=== PATIENT | female | born 1955 | race Caucasian/White ===

== ENCOUNTER 2018-09-12 12:36 | Inpatient (IN) ==
[2018-09-12] MEDS ORDERED: SODIUM CHLORIDE 0.9% 1,000 ML IV STA (13:20)
[2018-09-12 14:05] LABS: Basophils % 0.2 % (0.0-0.8); Eosinophils % 0.3 % (0.00-10.9); Hematocrit 46.5 VOL% (35.7-47.0); Immature Granulocytes % 0.2 %; Immature Granulocytes Absolute 0.02 #; Lymphocytes # 2.1 10*3/uL (1.4-4.0); Lymphocytes % 20.4 % (21.3-54.2); Mean Corpuscular HGB Conc 32.3 GM/DL (32-36); Mean Corpuscular Hemoglobin 32 PG (27-34); Mean Corpuscular Volume 98.5 FL (87-102); Mean Platelet Volume 14.1 FL (9.6-12.0); Monocytes # 0.7 10*3/uL (0.11-0.8); Monocytes % 7.4 % (1.7-12.7); Neutrophils # 7.2 10*3/uL (1.4-7.4); Neutrophils % 71.5 % (38.7-73.9); Platelet Count 105 T/CUMM (130-400); Red Blood Count 4.72 MC/CUMM (3.8-5.5); Red Cell Distribution Width 12.5 % (9.3-17.3); White Blood Count 10.1 T/CUMM (4-12)
[2018-09-12 14:09] LABS: Apearance,Urine CLOUDY (Clear); Bacteria,Urine Few /HPF (Few); Bilirubin,Urine Negative (Negative); Blood, Urine Small mg/dL (Negative); Glucose,Urine (UA) Negative (Negative); Ketones,Urine 80 mg/dL (Negative); Mucus,Urine Occasional /LPF (Occasional); Nitrite,Urine Negative (Negative); Protein,Urine 100 MG/DL; Squamous Epithelial Cell,Urine Few /HPF (0-10); Urine Color Amber (Yellow); Urine Specific Gravity 1.029 (1.001-1.035); WBC,Urine 3 /HPF (0-6)
[2018-09-12 14:15] LABS: Albumin 3.7 G/DL (3.4-5.0); Bilirubin,Total 0.5 MG/DL (0.2-1.0); Calcium 8.4 MG/DL (8.5-10.1); Osmolality,Calculated 319.9 MOS/KG (273-304); Potassium 3.4 MMOL/L (3.5-5.1); Total Protein 6.7 G/DL (6.4-8.3)
[2018-09-12] MEDS ORDERED: ACETAMINOPHEN 325 MG TABLET PO PRN (14:56)
[2018-09-12] MEDS ORDERED: ONDANSETRON 4 MG/2 ML VIAL IV PRN (14:56)
[2018-09-12] MEDS: SODIUM CHLORIDE 0.9% 1,000 ML IV SCH (16:38)
[2018-09-12] MEDS ORDERED: POTASSIUM CHLORIDE RIDER 10 MEQ in PREMIX 1 EACH IV PRN (17:32)
[2018-09-12] MEDS ORDERED: FLUCONAZOLE INJ 200 MG in PREMIX 1 EACH IV ONE (17:34)
[2018-09-12] MEDS ORDERED: MAGNESIUM HYDROXIDE SUSP 30 ML UDCUP PO PRN (18:24)
[2018-09-12] MEDS: methylPREDNISolone SOD SUC 40 MG/1 ML VIAL IV SCH (18:42)
[2018-09-12] MEDS: KETOROLAC 15 MG/1 ML VIAL IV SCH (18:42)
[2018-09-12] MEDS: NYSTATIN 500,000 UNIT/5 ML UDCUP SWISH/SWAL SCH (20:59)
[2018-09-12] MEDS: POLYVINYL ALCOHOL 1.4% OPH SOLN 15 ML BOTTLE BOTH EYES SCH (20:59)
[2018-09-12] MEDS: traZODone 50 MG TABLET PO SCH (21:00)
[2018-09-12] MEDS: DOCUSATE SODIUM 100 MG CAPSULE PO SCH (21:00)
[2018-09-12] MEDS: PREGABALIN 75 MG CAPSULE PO SCH (21:01)
[2018-09-12] MEDS: BACLOFEN 10 MG TABLET PO SCH (21:01)
[2018-09-12] MEDS: FAMOTIDINE 20 MG TABLET PO SCH (21:02)
[2018-09-12] MEDS: cefTRIAXone 500 MG in SYRINGE 1 EACH IV SCH (21:06)
[2018-09-12] MEDS ORDERED: KETOROLAC 15 MG/1 ML VIAL IV SCH (22:00)
[2018-09-13] MEDS ORDERED: MAGNESIUM HYDROXIDE SUSP 30 ML UDCUP PO SCH
[2018-09-13] MEDS: SODIUM CHLORIDE 0.9% 1,000 ML IV SCH ×2 (02:31→09:42)
[2018-09-13] MEDS: KETOROLAC 15 MG/1 ML VIAL IV SCH ×3 (02:31→17:33)
[2018-09-13] MEDS: methylPREDNISolone SOD SUC 40 MG/1 ML VIAL IV SCH ×3 (02:33→17:32)
[2018-09-13 07:00] LABS: Calcium 7.9 MG/DL (8.5-10.1); Potassium 3.1 MMOL/L (3.5-5.1)
[2018-09-13] MEDS: DICYCLOMINE 20 MG TABLET PO SCH ×2 (07:45→16:05)
[2018-09-13] MEDS: BACLOFEN 10 MG TABLET PO SCH ×3 (08:20→21:42)
[2018-09-13] MEDS: OXYBUTYNIN XL 10 MG TABLET PO SCH (08:20)
[2018-09-13] MEDS: NYSTATIN 500,000 UNIT/5 ML UDCUP SWISH/SWAL SCH ×4 (08:20→21:42)
[2018-09-13] MEDS: DOCUSATE SODIUM 100 MG CAPSULE PO SCH ×2 (08:20→21:41)
[2018-09-13] MEDS: PREGABALIN 75 MG CAPSULE PO SCH ×2 (08:20→21:42)
[2018-09-13] MEDS: amLODIPine 5 MG TABLET PO SCH (08:21)
[2018-09-13] MEDS: FAMOTIDINE 20 MG TABLET PO SCH ×2 (08:21→21:42)
[2018-09-13] MEDS: PANTOPRAZOLE 40 MG TABLET PO SCH (08:21)
[2018-09-13] MEDS: carBAMazepine 200 MG TABLET PO SCH (08:21)
[2018-09-13] MEDS: LISINOPRIL 10 MG TABLET PO SCH (08:21)
[2018-09-13] MEDS: FLUCONAZOLE INJ 100 MG in IV BAG 1 EACH IV SCH (09:41)
[2018-09-13] MEDS: POLYVINYL ALCOHOL 1.4% OPH SOLN 15 ML BOTTLE BOTH EYES SCH ×2 (09:41→21:41)
[2018-09-13] MEDS ORDERED: POTASSIUM CHLORIDE 20 MEQ TABLET PO ONE (11:19)
[2018-09-13] MEDS ORDERED: POTASSIUM CHLORIDE RIDER 10 MEQ in PREMIX 1 EACH IV PRN (14:18)
[2018-09-13] MEDS: DEXTROSE 5% 1,000 ML IV SCH (15:49)
[2018-09-13] MEDS: FAT EMULSION 20% 250 ML IV SCH (16:05)
[2018-09-13] MEDS ORDERED: TRACE ELEMENTS (5) 1 ML, MULTIVITAMIN INJ 10 ML in AMINO ACIDS/DEXT/LYTES 5-15% 2,000 ML IV SCH (17:00)
[2018-09-13] MEDS: INSULIN REGULAR 100 UNIT/ML SUBCUT SCH (17:36)
[2018-09-13] MEDS: HYDROmorphone 2 MG/1 ML VIAL IV PRN (21:35)
[2018-09-13] MEDS: traZODone 50 MG TABLET PO SCH (21:41)
[2018-09-13] MEDS: POTASSIUM CHLORIDE 20 MEQ TABLET PO SCH (21:42)
[2018-09-13] MEDS: cefTRIAXone 500 MG in SYRINGE 1 EACH IV SCH (22:28)
[2018-09-14] MEDS: INSULIN REGULAR 100 UNIT/ML SUBCUT SCH ×4 (01:15→18:37)
[2018-09-14] MEDS: KETOROLAC 15 MG/1 ML VIAL IV SCH ×3 (01:36→17:49)
[2018-09-14] MEDS: methylPREDNISolone SOD SUC 40 MG/1 ML VIAL IV SCH ×3 (02:07→17:46)
[2018-09-14] MEDS: DEXTROSE 5% 1,000 ML IV SCH ×2 (02:07→14:05)
[2018-09-14] MEDS: HYDROmorphone 2 MG/1 ML VIAL IV PRN ×4 (02:17→23:57)
[2018-09-14 05:35] LABS: Basophils % 0.1 % (0.0-0.8); Hematocrit 41.7 VOL% (35.7-47.0); Hemoglobin 13.8 GM/DL (12.0-16.0); Immature Granulocytes % 0.8 %; Immature Granulocytes Absolute 0.11 #; Lymphocytes % 7.4 % (21.3-54.2); Mean Corpuscular HGB Conc 33.1 GM/DL (32-36); Mean Corpuscular Hemoglobin 32 PG (27-34); Mean Corpuscular Volume 96.3 FL (87-102); Mean Platelet Volume 13.6 FL (9.6-12.0); Monocytes # 0.8 10*3/uL (0.11-0.8); Monocytes % 5.6 % (1.7-12.7); Neutrophils # 11.9 10*3/uL (1.4-7.4); Neutrophils % 86.1 % (38.7-73.9); Platelet Count 85 T/CUMM (130-400); Red Blood Count 4.33 MC/CUMM (3.8-5.5); Red Cell Distribution Width 11.9 % (9.3-17.3); White Blood Count 13.9 T/CUMM (4-12)
[2018-09-14 05:50] LABS: Calcium 7.9 MG/DL (8.5-10.1); Osmolality,Calculated 296.7 MOS/KG (273-304); Prealbumin 24.5 MG/DL (20-40)
[2018-09-14] MEDS: POTASSIUM CHLORIDE RIDER 20 MEQ in PREMIX 1 EACH IV PRN ×3 (06:38→17:47)
[2018-09-14 06:40] LABS: Anisocytosis 1+; Microcytosis Slight
[2018-09-14 06:41] LABS: Platelet Estimate Decreased
[2018-09-14] MEDS: DICYCLOMINE 20 MG TABLET PO SCH ×2 (09:33→17:19)
[2018-09-14] MEDS: OXYBUTYNIN XL 10 MG TABLET PO SCH (09:33)
[2018-09-14] MEDS: DOCUSATE SODIUM 100 MG CAPSULE PO SCH ×2 (09:33→21:32)
[2018-09-14] MEDS: FAMOTIDINE 20 MG TABLET PO SCH ×2 (09:34→21:33)
[2018-09-14] MEDS: amLODIPine 5 MG TABLET PO SCH (09:34)
[2018-09-14] MEDS: carBAMazepine 200 MG TABLET PO SCH (09:34)
[2018-09-14] MEDS: BACLOFEN 10 MG TABLET PO SCH ×3 (09:34→21:32)
[2018-09-14] MEDS: POTASSIUM CHLORIDE 20 MEQ TABLET PO SCH ×2 (09:34→21:32)
[2018-09-14] MEDS: PREGABALIN 75 MG CAPSULE PO SCH ×2 (09:34→21:32)
[2018-09-14] MEDS: LISINOPRIL 10 MG TABLET PO SCH (09:34)
[2018-09-14] MEDS: PANTOPRAZOLE 40 MG TABLET PO SCH (09:34)
[2018-09-14] MEDS: NYSTATIN 500,000 UNIT/5 ML UDCUP SWISH/SWAL SCH ×5 (09:49→21:32)
[2018-09-14] MEDS: FLUCONAZOLE INJ 100 MG in IV BAG 1 EACH IV SCH (09:49)
[2018-09-14] MEDS: SODIUM CHLORIDE 0.45% 1,000 ML IV SCH ×2 (09:51→21:29)
[2018-09-14] MEDS ORDERED: POTASSIUM PHOSPHATE 15 MMOL in SODIUM CHLORIDE 0.9% 100 ML IV ONE (10:00)
[2018-09-14] MEDS: POLYVINYL ALCOHOL 1.4% OPH SOLN 15 ML BOTTLE BOTH EYES SCH ×2 (10:07→21:32)
[2018-09-14] MEDS: FAT EMULSION 20% 250 ML IV SCH (16:30)
[2018-09-14] MEDS: TRACE ELEMENTS (5) 1 ML, MULTIVITAMIN INJ 10 ML in AMINO ACIDS/DEXT/LYTES 5-15% 2,000 ML IV SCH (16:31)
[2018-09-14] MEDS: cefTRIAXone 500 MG in SYRINGE 1 EACH IV SCH (21:18)
[2018-09-14] MEDS: traZODone 50 MG TABLET PO SCH (21:32)
[2018-09-15] MEDS: INSULIN REGULAR 100 UNIT/ML SUBCUT SCH ×4 (01:34→17:59)
[2018-09-15] MEDS: KETOROLAC 15 MG/1 ML VIAL IV SCH ×3 (01:34→17:58)
[2018-09-15] MEDS: methylPREDNISolone SOD SUC 40 MG/1 ML VIAL IV SCH ×3 (01:48→17:59)
[2018-09-15] MEDS: SODIUM CHLORIDE 0.45% 1,000 ML IV SCH ×2 (07:29→16:40)
[2018-09-15] MEDS: DICYCLOMINE 20 MG TABLET PO SCH ×2 (07:45→16:59)
[2018-09-15] MEDS: FLUCONAZOLE INJ 100 MG in IV BAG 1 EACH IV SCH (09:23)
[2018-09-15] MEDS: PREGABALIN 75 MG CAPSULE PO SCH ×2 (09:24→22:46)
[2018-09-15] MEDS: amLODIPine 5 MG TABLET PO SCH (09:24)
[2018-09-15] MEDS: BACLOFEN 10 MG TABLET PO SCH ×3 (09:24→22:46)
[2018-09-15] MEDS: FAMOTIDINE 20 MG TABLET PO SCH ×2 (09:24→22:47)
[2018-09-15] MEDS: POTASSIUM CHLORIDE 20 MEQ TABLET PO SCH ×2 (09:24→22:46)
[2018-09-15] MEDS: OXYBUTYNIN XL 10 MG TABLET PO SCH (09:24)
[2018-09-15] MEDS: LISINOPRIL 10 MG TABLET PO SCH (09:24)
[2018-09-15] MEDS: DOCUSATE SODIUM 100 MG CAPSULE PO SCH ×2 (09:24→22:45)
[2018-09-15] MEDS: PANTOPRAZOLE 40 MG TABLET PO SCH (09:25)
[2018-09-15] MEDS: carBAMazepine 200 MG TABLET PO SCH (09:25)
[2018-09-15] MEDS: POLYVINYL ALCOHOL 1.4% OPH SOLN 15 ML BOTTLE BOTH EYES SCH ×2 (09:28→22:45)
[2018-09-15] MEDS: NYSTATIN 500,000 UNIT/5 ML UDCUP SWISH/SWAL SCH ×5 (09:29→22:46)
[2018-09-15] MEDS ORDERED: ALBUTEROL/IPRATROPIUM 3 ML NEB RESP TX ONE (11:32)
[2018-09-15] MEDS ORDERED: FUROSEMIDE 20 MG/2 ML VIAL IV ONE (11:32)
[2018-09-15] MEDS: HYDROmorphone 2 MG/1 ML VIAL IV PRN ×2 (12:54→21:36)
[2018-09-15] MEDS ORDERED: ALBUTEROL/IPRATROPIUM 3 ML NEB RESP TX SCH (13:00)
[2018-09-15] MEDS: TRACE ELEMENTS (5) 1 ML, MULTIVITAMIN INJ 10 ML in AMINO ACIDS/DEXT/LYTES 5-15% 2,000 ML IV SCH (16:57)
[2018-09-15] MEDS: FAT EMULSION 20% 250 ML IV SCH (16:58)
[2018-09-15] MEDS: ALBUTEROL/IPRATROPIUM 3 ML NEB RESP TX SCH (19:36)
[2018-09-15] MEDS: cefTRIAXone 500 MG in SYRINGE 1 EACH IV SCH (21:36)
[2018-09-15] MEDS: traZODone 50 MG TABLET PO SCH (22:46)
[2018-09-16] MEDS: ALBUTEROL/IPRATROPIUM 3 ML NEB RESP TX SCH ×4 (01:12→19:10)
[2018-09-16] MEDS: INSULIN REGULAR 100 UNIT/ML SUBCUT SCH ×4 (02:17→20:00)
[2018-09-16] MEDS: methylPREDNISolone SOD SUC 40 MG/1 ML VIAL IV SCH ×3 (02:18→18:41)
[2018-09-16] MEDS: KETOROLAC 15 MG/1 ML VIAL IV SCH ×3 (02:20→18:41)
[2018-09-16 05:28] LABS: Basophils % 0.1 % (0.0-0.8); Hematocrit 37.9 VOL% (35.7-47.0); Hemoglobin 13.1 GM/DL (12.0-16.0); Immature Granulocytes % 0.5 %; Immature Granulocytes Absolute 0.06 #; Lymphocytes # 0.7 10*3/uL (1.4-4.0); Lymphocytes % 5.8 % (21.3-54.2); Mean Corpuscular HGB Conc 34.6 GM/DL (32-36); Mean Corpuscular Hemoglobin 33 PG (27-34); Monocytes # 0.6 10*3/uL (0.11-0.8); Monocytes % 5.2 % (1.7-12.7); Neutrophils # 10.3 10*3/uL (1.4-7.4); Neutrophils % 88.4 % (38.7-73.9); Platelet Count 51 T/CUMM (130-400); Red Blood Count 4.03 MC/CUMM (3.8-5.5); Red Cell Distribution Width 11.7 % (9.3-17.3); White Blood Count 11.6 T/CUMM (4-12)
[2018-09-16 05:51] LABS: Lymphocytes 7 % (20-55); Segmented Neutrophils 86 % (50-85); Total Cells Counted 100
[2018-09-16 05:52] LABS: Platelet Estimate Decreased
[2018-09-16 06:05] LABS: Calcium 8.1 MG/DL (8.5-10.1); Osmolality,Calculated 283.5 MOS/KG (273-304); Potassium 3.4 MMOL/L (3.5-5.1)
[2018-09-16 06:06] LABS: Calcium 8.2 MG/DL (8.5-10.1); Osmolality,Calculated 286.4 MOS/KG (273-304); Potassium 3.4 MMOL/L (3.5-5.1)
[2018-09-16] MEDS: POLYVINYL ALCOHOL 1.4% OPH SOLN 15 ML BOTTLE BOTH EYES SCH ×2 (10:17→23:58)
[2018-09-16] MEDS: NYSTATIN 500,000 UNIT/5 ML UDCUP SWISH/SWAL SCH ×3 (10:18→23:58)
[2018-09-16] MEDS: DICYCLOMINE 20 MG TABLET PO SCH ×2 (12:07→17:08)
[2018-09-16] MEDS: POTASSIUM CHLORIDE 20 MEQ TABLET PO SCH ×2 (12:07→23:58)
[2018-09-16] MEDS: OXYBUTYNIN XL 10 MG TABLET PO SCH (12:07)
[2018-09-16] MEDS: DOCUSATE SODIUM 100 MG CAPSULE PO SCH ×2 (12:07→23:58)
[2018-09-16] MEDS: PREGABALIN 75 MG CAPSULE PO SCH ×2 (12:08→23:58)
[2018-09-16] MEDS: amLODIPine 5 MG TABLET PO SCH (12:08)
[2018-09-16] MEDS: BACLOFEN 10 MG TABLET PO SCH ×3 (12:08→23:58)
[2018-09-16] MEDS: FAMOTIDINE 20 MG TABLET PO SCH ×2 (12:09→23:59)
[2018-09-16] MEDS: carBAMazepine 200 MG TABLET PO SCH (12:09)
[2018-09-16] MEDS: PANTOPRAZOLE 40 MG TABLET PO SCH (12:09)
[2018-09-16] MEDS: LISINOPRIL 10 MG TABLET PO SCH (12:09)
[2018-09-16] MEDS: FLUCONAZOLE INJ 100 MG in IV BAG 1 EACH IV SCH (12:38)
[2018-09-16] MEDS: SODIUM CHLORIDE 0.45% 1,000 ML IV SCH ×2 (12:39→17:07)
[2018-09-16] MEDS: FAT EMULSION 20% 250 ML IV SCH (17:07)
[2018-09-16] MEDS: TRACE ELEMENTS (5) 1 ML, MULTIVITAMIN INJ 10 ML in AMINO ACIDS/DEXT/LYTES 5-15% 2,000 ML IV SCH (17:08)
[2018-09-16] MEDS: cefTRIAXone 500 MG in SYRINGE 1 EACH IV SCH (21:34)
[2018-09-16] MEDS: POTASSIUM CHLORIDE RIDER 20 MEQ in PREMIX 1 EACH IV PRN (21:36)
[2018-09-16] MEDS ORDERED: ALPRAZolam 0.25 MG TABLET PO ONE (23:09)
[2018-09-16] MEDS: traZODone 50 MG TABLET PO SCH (23:58)
[2018-09-17] MEDS: ALBUTEROL/IPRATROPIUM 3 ML NEB RESP TX SCH ×4 (00:07→19:13)
[2018-09-17] MEDS: INSULIN REGULAR 100 UNIT/ML SUBCUT SCH ×4 (00:18→19:02)
[2018-09-17] MEDS: methylPREDNISolone SOD SUC 40 MG/1 ML VIAL IV SCH ×3 (00:20→22:09)
[2018-09-17] MEDS: KETOROLAC 15 MG/1 ML VIAL IV SCH ×2 (02:06→10:23)
[2018-09-17 04:39] LABS: Basophils % 0.1 % (0.0-0.8); Hematocrit 38.6 VOL% (35.7-47.0); Immature Granulocytes % 0.9 %; Lymphocytes # 0.6 10*3/uL (1.4-4.0); Lymphocytes % 5.2 % (21.3-54.2); Mean Corpuscular HGB Conc 33.7 GM/DL (32-36); Mean Corpuscular Hemoglobin 32 PG (27-34); Mean Corpuscular Volume 93.7 FL (87-102); Mean Platelet Volume 14.4 FL (9.6-12.0); Monocytes # 0.6 10*3/uL (0.11-0.8); Monocytes % 5.7 % (1.7-12.7); Neutrophils # 9.8 10*3/uL (1.4-7.4); Neutrophils % 88.1 % (38.7-73.9); Platelet Count 41 T/CUMM (130-400); Red Blood Count 4.12 MC/CUMM (3.8-5.5); Red Cell Distribution Width 11.5 % (9.3-17.3); White Blood Count 11.1 T/CUMM (4-12)
[2018-09-17 05:05] LABS: Anisocytosis Slight
[2018-09-17 05:06] LABS: Microcytosis Slight
[2018-09-17 05:19] LABS: Platelet Estimate Decreased
[2018-09-17] MEDS: POLYVINYL ALCOHOL 1.4% OPH SOLN 15 ML BOTTLE BOTH EYES SCH ×2 (08:47→20:21)
[2018-09-17] MEDS: DICYCLOMINE 20 MG TABLET PO SCH ×2 (11:43→18:14)
[2018-09-17] MEDS: LISINOPRIL 20 MG TABLET PO SCH (11:45)
[2018-09-17] MEDS: carBAMazepine 200 MG TABLET PO SCH (11:45)
[2018-09-17] MEDS: FAMOTIDINE 20 MG TABLET PO SCH ×2 (11:45→20:30)
[2018-09-17] MEDS: ALPRAZolam 0.25 MG TABLET PO SCH ×3 (11:45→20:30)
[2018-09-17] MEDS: PANTOPRAZOLE 40 MG TABLET PO SCH (11:45)
[2018-09-17] MEDS: NYSTATIN 500,000 UNIT/5 ML UDCUP SWISH/SWAL SCH ×4 (11:46→20:30)
[2018-09-17] MEDS: BACLOFEN 10 MG TABLET PO SCH ×3 (11:46→20:30)
[2018-09-17] MEDS: amLODIPine 10 MG TABLET PO SCH (11:46)
[2018-09-17] MEDS: PREGABALIN 75 MG CAPSULE PO SCH ×2 (11:46→20:30)
[2018-09-17] MEDS: DOCUSATE SODIUM 100 MG CAPSULE PO SCH ×2 (11:47→20:29)
[2018-09-17] MEDS: OXYBUTYNIN XL 10 MG TABLET PO SCH (11:47)
[2018-09-17] MEDS: POTASSIUM CHLORIDE 20 MEQ TABLET PO SCH ×2 (11:47→20:30)
[2018-09-17] MEDS: FAT EMULSION 20% 250 ML IV SCH (18:11)
[2018-09-17] MEDS: SODIUM CHLORIDE 0.45% 1,000 ML IV SCH (18:13)
[2018-09-17] MEDS: TRACE ELEMENTS (5) 1 ML, MULTIVITAMIN INJ 10 ML in AMINO ACIDS/DEXT/LYTES 5-15% 2,000 ML IV SCH (18:14)
[2018-09-17] MEDS: cefTRIAXone 500 MG in SYRINGE 1 EACH IV SCH (20:21)
[2018-09-17] MEDS: traZODone 50 MG TABLET PO SCH (20:29)
[2018-09-18] MEDS: INSULIN REGULAR 100 UNIT/ML SUBCUT SCH ×4 (00:09→18:15)
[2018-09-18] MEDS: ALBUTEROL/IPRATROPIUM 3 ML NEB RESP TX SCH ×4 (00:30→19:36)
[2018-09-18 04:59] LABS: Basophils % 0.2 % (0.0-0.8); Eosinophils % 0.2 % (0.00-10.9); Hematocrit 38.1 VOL% (35.7-47.0); Hemoglobin 12.9 GM/DL (12.0-16.0); Immature Granulocytes % 1.2 %; Immature Granulocytes Absolute 0.15 #; Lymphocytes # 1.1 10*3/uL (1.4-4.0); Lymphocytes % 8.5 % (21.3-54.2); Mean Corpuscular HGB Conc 33.9 GM/DL (32-36); Mean Corpuscular Hemoglobin 32 PG (27-34); Mean Corpuscular Volume 93.8 FL (87-102); Mean Platelet Volume 14.4 FL (9.6-12.0); Monocytes # 1.1 10*3/uL (0.11-0.8); Monocytes % 9.1 % (1.7-12.7); Neutrophils # 10.2 10*3/uL (1.4-7.4); Neutrophils % 80.8 % (38.7-73.9); Platelet Count 67 T/CUMM (130-400); Red Blood Count 4.06 MC/CUMM (3.8-5.5); Red Cell Distribution Width 11.5 % (9.3-17.3); White Blood Count 12.6 T/CUMM (4-12)
[2018-09-18 05:25] LABS: Hypochromasia 1+; Platelet Estimate Decreased
[2018-09-18 05:26] LABS: Microcytosis Slight
[2018-09-18] MEDS: NYSTATIN 500,000 UNIT/5 ML UDCUP SWISH/SWAL SCH ×4 (09:22→21:12)
[2018-09-18] MEDS: DICYCLOMINE 20 MG TABLET PO SCH ×2 (09:24→16:05)
[2018-09-18] MEDS: POLYVINYL ALCOHOL 1.4% OPH SOLN 15 ML BOTTLE BOTH EYES SCH ×2 (09:24→21:11)
[2018-09-18] MEDS: OXYBUTYNIN XL 10 MG TABLET PO SCH (09:24)
[2018-09-18] MEDS: BACLOFEN 10 MG TABLET PO SCH ×3 (09:24→21:10)
[2018-09-18] MEDS: DOCUSATE SODIUM 100 MG CAPSULE PO SCH ×2 (09:24→23:01)
[2018-09-18] MEDS: POTASSIUM CHLORIDE 20 MEQ TABLET PO SCH ×2 (09:24→21:10)
[2018-09-18] MEDS: PREGABALIN 75 MG CAPSULE PO SCH ×2 (09:25→21:11)
[2018-09-18] MEDS: amLODIPine 10 MG TABLET PO SCH (09:29)
[2018-09-18] MEDS: FAMOTIDINE 20 MG TABLET PO SCH ×2 (09:29→21:10)
[2018-09-18] MEDS: carBAMazepine 200 MG TABLET PO SCH (09:32)
[2018-09-18] MEDS: PANTOPRAZOLE 40 MG TABLET PO SCH (09:32)
[2018-09-18] MEDS: ALPRAZolam 0.25 MG TABLET PO SCH ×3 (09:32→21:11)
[2018-09-18] MEDS: LISINOPRIL 20 MG TABLET PO SCH (09:32)
[2018-09-18] MEDS: methylPREDNISolone SOD SUC 40 MG/1 ML VIAL IV SCH ×2 (11:22→22:58)
[2018-09-18] MEDS: FAT EMULSION 20% 250 ML IV SCH (16:05)
[2018-09-18] MEDS: TRACE ELEMENTS (5) 1 ML, MULTIVITAMIN INJ 10 ML in AMINO ACIDS/DEXT/LYTES 5-15% 2,000 ML IV SCH (16:06)
[2018-09-18] MEDS: traZODone 50 MG TABLET PO SCH (21:10)
[2018-09-19] MEDS: ALBUTEROL/IPRATROPIUM 3 ML NEB RESP TX SCH ×4 (00:08→19:40)
[2018-09-19] MEDS: INSULIN REGULAR 100 UNIT/ML SUBCUT SCH ×4 (02:02→18:29)
[2018-09-19 05:05] LABS: Basophils % 0.1 % (0.0-0.8); Eosinophils % 0.1 % (0.00-10.9); Hematocrit 37.7 VOL% (35.7-47.0); Hemoglobin 12.6 GM/DL (12.0-16.0); Immature Granulocytes % 1.7 %; Immature Granulocytes Absolute 0.23 #; Lymphocytes # 0.7 10*3/uL (1.4-4.0); Lymphocytes % 5.2 % (21.3-54.2); Mean Corpuscular HGB Conc 33.4 GM/DL (32-36); Mean Corpuscular Hemoglobin 32 PG (27-34); Mean Corpuscular Volume 94.5 FL (87-102); Mean Platelet Volume 14.7 FL (9.6-12.0); Monocytes % 7.5 % (1.7-12.7); Neutrophils # 11.6 10*3/uL (1.4-7.4); Neutrophils % 85.4 % (38.7-73.9); Platelet Count 73 T/CUMM (130-400); Red Blood Count 3.99 MC/CUMM (3.8-5.5); Red Cell Distribution Width 11.8 % (9.3-17.3); White Blood Count 13.6 T/CUMM (4-12)
[2018-09-19 05:24] LABS: Calcium 8.1 MG/DL (8.5-10.1); Osmolality,Calculated 285.7 MOS/KG (273-304); Potassium 4.9 MMOL/L (3.5-5.1)
[2018-09-19 05:42] LABS: Alanine Aminotransferase 186 U/L (13-56); Albumin 2.9 G/DL (3.4-5.0); Alkaline Phosphatase 75 U/L (45-117); Aspartate Amino Transferase 38 U/L (0-37); Bilirubin,Indirect 0.3 MG/DL (0.0-1.0); Bilirubin,Total < 0.39 MG/DL (0.2-1.0); Total Protein 5.8 G/DL (6.4-8.3)
[2018-09-19 05:50] LABS: Lymphocytes 11 % (20-55); Segmented Neutrophils 84 % (50-85); Total Cells Counted 100
[2018-09-19 05:51] LABS: Anisocytosis Slight; Microcytosis Slight; Platelet Estimate Decreased
[2018-09-19] MEDS: amLODIPine 10 MG TABLET PO SCH (09:07)
[2018-09-19] MEDS: OXYBUTYNIN XL 10 MG TABLET PO SCH (09:07)
[2018-09-19] MEDS: carBAMazepine 200 MG TABLET PO SCH (09:07)
[2018-09-19] MEDS: POTASSIUM CHLORIDE 20 MEQ TABLET PO SCH ×2 (09:07→20:58)
[2018-09-19] MEDS: ALPRAZolam 0.25 MG TABLET PO SCH ×3 (09:07→20:58)
[2018-09-19] MEDS: LISINOPRIL 20 MG TABLET PO SCH (09:07)
[2018-09-19] MEDS: NYSTATIN 500,000 UNIT/5 ML UDCUP SWISH/SWAL SCH ×4 (09:07→21:00)
[2018-09-19] MEDS: BACLOFEN 10 MG TABLET PO SCH ×3 (09:08→20:58)
[2018-09-19] MEDS: FAMOTIDINE 20 MG TABLET PO SCH ×2 (09:08→20:58)
[2018-09-19] MEDS: DICYCLOMINE 20 MG TABLET PO SCH ×2 (09:08→16:53)
[2018-09-19] MEDS: PREGABALIN 75 MG CAPSULE PO SCH ×2 (09:08→20:58)
[2018-09-19] MEDS: POLYVINYL ALCOHOL 1.4% OPH SOLN 15 ML BOTTLE BOTH EYES SCH ×2 (09:08→21:04)
[2018-09-19] MEDS: DOCUSATE SODIUM 100 MG CAPSULE PO SCH ×2 (09:09→20:57)
[2018-09-19] MEDS: PANTOPRAZOLE 40 MG TABLET PO SCH (09:14)
[2018-09-19] MEDS: methylPREDNISolone SOD SUC 40 MG/1 ML VIAL IV SCH ×2 (12:41→22:35)
[2018-09-19] MEDS: TRACE ELEMENTS (5) 1 ML, MULTIVITAMIN INJ 10 ML in AMINO ACIDS/DEXT/LYTES 5-15% 2,000 ML IV SCH (16:53)
[2018-09-19] MEDS: FAT EMULSION 20% 250 ML IV SCH (16:53)
[2018-09-19] MEDS: SODIUM CHLORIDE 0.45% 1,000 ML IV SCH (17:24)
[2018-09-19] MEDS: traZODone 50 MG TABLET PO SCH (21:00)
[2018-09-20] MEDS: ALBUTEROL/IPRATROPIUM 3 ML NEB RESP TX SCH ×4 (00:28→19:25)
[2018-09-20] MEDS: INSULIN REGULAR 100 UNIT/ML SUBCUT SCH ×4 (00:55→18:06)
[2018-09-20] MEDS: SODIUM CHLORIDE 0.45% 1,000 ML IV SCH (01:48)
[2018-09-20] MEDS: carBAMazepine 200 MG TABLET PO SCH (08:36)
[2018-09-20] MEDS: DICYCLOMINE 20 MG TABLET PO SCH ×2 (08:36→17:41)
[2018-09-20] MEDS: OXYBUTYNIN XL 10 MG TABLET PO SCH (08:36)
[2018-09-20] MEDS: LISINOPRIL 20 MG TABLET PO SCH (08:36)
[2018-09-20] MEDS: POTASSIUM CHLORIDE 20 MEQ TABLET PO SCH (08:36)
[2018-09-20] MEDS: ALPRAZolam 0.25 MG TABLET PO SCH ×3 (08:37→20:50)
[2018-09-20] MEDS: FAMOTIDINE 20 MG TABLET PO SCH ×2 (08:37→20:51)
[2018-09-20] MEDS: amLODIPine 10 MG TABLET PO SCH (08:37)
[2018-09-20] MEDS: PREGABALIN 75 MG CAPSULE PO SCH ×2 (08:38→20:51)
[2018-09-20] MEDS: PANTOPRAZOLE 40 MG TABLET PO SCH (08:38)
[2018-09-20] MEDS: POLYVINYL ALCOHOL 1.4% OPH SOLN 15 ML BOTTLE BOTH EYES SCH ×2 (08:39→20:51)
[2018-09-20] MEDS: BACLOFEN 10 MG TABLET PO SCH ×3 (08:39→20:51)
[2018-09-20] MEDS: NYSTATIN 500,000 UNIT/5 ML UDCUP SWISH/SWAL SCH ×4 (08:39→20:51)
[2018-09-20] MEDS: DOCUSATE SODIUM 100 MG CAPSULE PO SCH ×2 (08:39→20:50)
[2018-09-20] MEDS: methylPREDNISolone SOD SUC 40 MG/1 ML VIAL IV SCH ×2 (12:38→18:06)
[2018-09-20] MEDS ORDERED: SODIUM PHOSPHATE ENEMA 133 ML BOTTLE RECTAL ONE (15:24)
[2018-09-20] MEDS ORDERED: SODIUM PHOSPHATE ENEMA 133 ML BOTTLE RECTAL PRN (15:24)
[2018-09-20] MEDS ORDERED: OXYBUTYNIN XL 10 MG TABLET PO SCH (15:31)
[2018-09-20 15:44] LABS: Basophils # 0.1 10*3/uL (0.0-0.2); Basophils % 0.4 % (0.0-0.8); Eosinophils % 0.2 % (0.00-10.9); Hematocrit 39.6 VOL% (35.7-47.0); Hemoglobin 12.9 GM/DL (12.0-16.0); Immature Granulocytes % 5.2 %; Immature Granulocytes Absolute 0.92 #; Lymphocytes # 1.2 10*3/uL (1.4-4.0); Lymphocytes % 6.9 % (21.3-54.2); Mean Corpuscular HGB Conc 32.6 GM/DL (32-36); Mean Corpuscular Hemoglobin 32 PG (27-34); Mean Corpuscular Volume 96.6 FL (87-102); Mean Platelet Volume 13.9 FL (9.6-12.0); Monocytes # 1.7 10*3/uL (0.11-0.8); Monocytes % 9.8 % (1.7-12.7); Neutrophils # 13.8 10*3/uL (1.4-7.4); Neutrophils % 77.5 % (38.7-73.9); Platelet Count 106 T/CUMM (130-400); Red Cell Distribution Width 11.9 % (9.3-17.3); White Blood Count 17.7 T/CUMM (4-12)
[2018-09-20 16:08] LABS: Hypochromasia Slight; Lymphocytes 7 % (20-55); Microcytosis Slight; Segmented Neutrophils 84 % (50-85)
[2018-09-20 16:09] LABS: Platelet Estimate Decreased; Total Cells Counted 100
[2018-09-20 16:20] LABS: Calcium 8.6 MG/DL (8.5-10.1)
[2018-09-20] MEDS: TRACE ELEMENTS (5) 1 ML, MULTIVITAMIN INJ 10 ML in AMINO ACIDS/DEXT/LYTES 5-15% 2,000 ML IV SCH (18:08)
[2018-09-20] MEDS: FAT EMULSION 20% 250 ML IV SCH (18:08)
[2018-09-20] MEDS: traZODone 50 MG TABLET PO SCH (20:50)
[2018-09-20] MEDS ORDERED: MINERAL OIL ENEMA 133 ML BOTTLE RECTAL ONE (22:21)
[2018-09-21] MEDS: INSULIN REGULAR 100 UNIT/ML SUBCUT SCH ×3 (00:30→14:18)
[2018-09-21] MEDS: ALBUTEROL/IPRATROPIUM 3 ML NEB RESP TX SCH ×3 (00:32→13:34)
[2018-09-21] MEDS: methylPREDNISolone SOD SUC 40 MG/1 ML VIAL IV SCH (03:34)
[2018-09-21] MEDS: carBAMazepine 200 MG TABLET PO SCH (08:57)
[2018-09-21] MEDS: PANTOPRAZOLE 40 MG TABLET PO SCH (08:58)
[2018-09-21] MEDS: ALPRAZolam 0.25 MG TABLET PO SCH (08:58)
[2018-09-21] MEDS: FAMOTIDINE 20 MG TABLET PO SCH (08:59)
[2018-09-21] MEDS: NYSTATIN 500,000 UNIT/5 ML UDCUP SWISH/SWAL SCH ×2 (08:59→14:42)
[2018-09-21] MEDS: BACLOFEN 10 MG TABLET PO SCH (08:59)
[2018-09-21] MEDS: LISINOPRIL 20 MG TABLET PO SCH (08:59)
[2018-09-21] MEDS: amLODIPine 10 MG TABLET PO SCH (08:59)
[2018-09-21] MEDS: POLYVINYL ALCOHOL 1.4% OPH SOLN 15 ML BOTTLE BOTH EYES SCH (09:00)
[2018-09-21] MEDS: DOCUSATE SODIUM 100 MG CAPSULE PO SCH (09:00)
[2018-09-21] MEDS ORDERED: POTASSIUM CHLORIDE 20 MEQ TABLET PO SCH (09:00)
[2018-09-21] MEDS: DICYCLOMINE 20 MG TABLET PO SCH (09:00)
[2018-09-21] MEDS: PREGABALIN 75 MG CAPSULE PO SCH (09:01)
[2018-09-21 12:20] VITALS: BP 118/68
== END 2018-09-21 14:43 | DRG 115 ==
LOC: EDUNIT# → EDBD → N.ED 12:36 → N.EDINP 14:58 → N.4E 15:35
PROVIDERS: ADMIT Internal Medicine; ATTEND Internal Medicine

== ENCOUNTER 2021-03-23 17:59 | Inpatient (IN) ==
[2021-03-23] MEDS ORDERED: SODIUM CHLORIDE 0.9% 1,000 ML IV STA ×2 (18:21→20:00)
[2021-03-23] MEDS ORDERED: VANCOMYCIN INJ 1,500 MG in SODIUM CHLORIDE 0.9% 500 ML IV STA (18:22)
[2021-03-23] MEDS ORDERED: CEFEPIME 2,000 MG in SODIUM CHLORIDE 0.9% 100 ML IV STA (18:22)
[2021-03-23] MEDS ORDERED: VANCOMYCIN INJ 1,000 MG in SODIUM CHLORIDE 0.9% 250 ML IV STA (18:33)
[2021-03-23 19:55] LABS: Basophils % 0.2 % (0.0-0.8); Eosinophils # 0.1 10*3/uL (0.0-0.87); Eosinophils % 0.4 % (0.00-10.9); Hematocrit 48.3 VOL% (35.7-47.0); Hemoglobin 15.5 GM/DL (12.0-16.0); Immature Granulocytes % 0.8 %; Immature Granulocytes Absolute 0.12 #; Lymphocytes # 2.3 10*3/uL (1.4-4.0); Lymphocytes % 14.5 % (21.3-54.2); Mean Corpuscular HGB Conc 32.1 GM/DL (32-36); Mean Corpuscular Volume 105.7 FL (87-102); Mean Platelet Volume 12.9 FL (9.6-12.0); Monocytes % 10.6 % (1.7-12.7); Neutrophils % 73.5 % (38.7-73.9); Platelet Count 107 T/CUMM (130-400); Red Blood Count 4.57 MC/CUMM (3.8-5.5); Red Cell Distribution Width 12.4 % (9.3-17.3); White Blood Count 15.6 T/CUMM (4-12)
[2021-03-23 20:14] LABS: Alanine Aminotransferase 31 U/L (13-56); Albumin 2.9 G/DL (3.4-5.0); Alkaline Phosphatase 50 U/L (45-117); Aspartate Amino Transferase 15 U/L (0-37); Bilirubin,Direct < 0.100 MG/DL (0.0-0.20); Bilirubin,Indirect 0.3 MG/DL (0.0-1.0); Blood Urea Nitrogen 75 MG/DL (7-18); Calcium 8.2 MG/DL (8.5-10.1); Carbon Dioxide 18 MMOL/L (21-32); Estimated Glom Filtration Rate 21 ML/MIN; Glucose 179 MG/DL (74-106); Osmolality,Calculated 339.7 MOS/KG (273-304); Potassium 3.2 MMOL/L (3.5-5.1); Sodium 159 MMOL/L (136-145); Total Protein 5.4 G/DL (6.4-8.2)
[2021-03-23] MEDS ORDERED: ACETAMINOPHEN 325 MG TABLET PO PRN (20:42)
[2021-03-23] MEDS ORDERED: ONDANSETRON 4 MG/2 ML VIAL IV PRN (20:42)
[2021-03-23 20:52] LABS: Bacteria,Urine Many /HPF (Few); Bilirubin,Urine Negative (Negative); Blood, Urine Small mg/dL (Negative); Glucose,Urine (UA) Negative (Negative); Hyaline Casts,Urine 12 /LPF (0-3); Ketones,Urine Negative (Negative); Mucus,Urine Few /LPF (Occasional); Nitrite,Urine Negative (Negative); Protein,Urine 100 MG/DL; RBC,Urine 2 /HPF (0-4); Squamous Epithelial Cell,Urine Occasional /HPF (0-10); Urine Appearance Slightly Hazy (Clear); Urine Color Amber (Yellow); Urine Specific Gravity 1.023 (1.001-1.035)
[2021-03-23] MEDS: SODIUM CHLORIDE 0.9% 1,000 ML IV SCH (21:36)
[2021-03-24] MEDS: DOCUSATE SODIUM 100 MG CAPSULE PO SCH ×2 (04:35→09:26)
[2021-03-24] MEDS: SODIUM CHLORIDE 0.9% 1,000 ML IV SCH (04:39)
[2021-03-24 05:32] LABS: Basophils % 0.2 % (0.0-0.8); Eosinophils # 0.3 10*3/uL (0.0-0.87); Eosinophils % 1.8 % (0.00-10.9); Hematocrit 47.1 VOL% (35.7-47.0); Immature Granulocytes % 0.6 %; Immature Granulocytes Absolute 0.09 #; Lymphocytes % 21.3 % (21.3-54.2); Mean Corpuscular HGB Conc 31.8 GM/DL (32-36); Mean Platelet Volume 12.9 FL (9.6-12.0); Monocytes % 6.6 % (1.7-12.7); Neutrophils % 69.5 % (38.7-73.9); Red Cell Distribution Width 12.4 % (9.3-17.3); White Blood Count 14.2 T/CUMM (4-12)
[2021-03-24 05:38] LABS: Platelet Count 98 T/CUMM (130-400)
[2021-03-24 05:42] LABS: Albumin 2.9 G/DL (3.4-5.0); Bilirubin,Total 0.6 MG/DL (0.20-1.00); Calcium 8.5 MG/DL (8.5-10.1); Osmolality,Calculated 335.6 MOS/KG (273-304); Potassium 4.9 MMOL/L (3.5-5.1); Total Protein 5.4 G/DL (6.4-8.2)
[2021-03-24 05:52] LABS: Platelet Estimate Decreased
[2021-03-24] MEDS: PANTOPRAZOLE 40 MG TABLET PO SCH (09:26)
[2021-03-24] MEDS ORDERED: MAGNESIUM HYDROXIDE SUSP 30 ML UDCUP PO PRN (13:07)
[2021-03-24] MEDS: KETOROLAC 15 MG/1 ML VIAL IV SCH ×2 (13:24→22:41)
[2021-03-24] MEDS: SKIN HEALING OINT (AQUAPHOR) 50 GM TUBE TOP SCH (13:25)
[2021-03-24] MEDS: DEXTROSE 5% 1,000 ML IV SCH ×2 (13:25→22:40)
[2021-03-24] MEDS: methylPREDNISolone SOD SUC 40 MG/1 ML VIAL IV SCH ×2 (13:25→22:41)
[2021-03-25] MEDS: DOCUSATE SODIUM 100 MG CAPSULE PO SCH ×4 (06:16→20:35)
[2021-03-25] MEDS: KETOROLAC 15 MG/1 ML VIAL IV SCH ×3 (07:06→20:22)
[2021-03-25] MEDS: methylPREDNISolone SOD SUC 40 MG/1 ML VIAL IV SCH ×3 (07:06→20:25)
[2021-03-25 07:48] LABS: Basophils % 0.1 % (0.0-0.8); Eosinophils % 0.1 % (0.00-10.9); Hematocrit 39.2 VOL% (35.7-47.0); Hemoglobin 13.1 GM/DL (12.0-16.0); Immature Granulocytes % 0.6 %; Immature Granulocytes Absolute 0.06 #; Lymphocytes # 1.2 10*3/uL (1.4-4.0); Mean Corpuscular HGB Conc 33.4 GM/DL (32-36); Mean Corpuscular Volume 101.6 FL (87-102); Mean Platelet Volume 12.5 FL (9.6-12.0); Monocytes % 3.4 % (1.7-12.7); Neutrophils % 83.8 % (38.7-73.9); Platelet Count 71 T/CUMM (130-400); Red Blood Count 3.86 MC/CUMM (3.8-5.5); Red Cell Distribution Width 11.9 % (9.3-17.3); White Blood Count 10.2 T/CUMM (4-12)
[2021-03-25 08:07] LABS: Albumin 2.7 G/DL (3.4-5.0); Bilirubin,Total 0.6 MG/DL (0.20-1.00); Calcium 8.6 MG/DL (8.5-10.1); Osmolality,Calculated 314.7 MOS/KG (273-304); Potassium 3.8 MMOL/L (3.5-5.1); Total Protein 5.2 G/DL (6.4-8.2)
[2021-03-25 08:09] LABS: Platelet Estimate Decreased
[2021-03-25] MEDS: PANTOPRAZOLE 40 MG TABLET PO SCH ×2 (08:40→08:51)
[2021-03-25] MEDS: SKIN HEALING OINT (AQUAPHOR) 50 GM TUBE TOP SCH (08:51)
[2021-03-25] MEDS: DEXTROSE 5% 1,000 ML IV SCH ×2 (08:52→20:26)
[2021-03-25] MEDS: SODIUM CHLORIDE 0.45% 1,000 ML IV SCH (23:23)
[2021-03-26] MEDS: KETOROLAC 15 MG/1 ML VIAL IV SCH ×4 (01:05→20:29)
[2021-03-26] MEDS: methylPREDNISolone SOD SUC 40 MG/1 ML VIAL IV SCH ×3 (04:18→20:29)
[2021-03-26 04:26] LABS: Basophils % 0.1 % (0.0-0.8); Hematocrit 40.1 VOL% (35.7-47.0); Hemoglobin 13.6 GM/DL (12.0-16.0); Immature Granulocytes % 0.9 %; Lymphocytes % 8.3 % (21.3-54.2); Mean Corpuscular HGB Conc 33.9 GM/DL (32-36); Mean Corpuscular Volume 98.8 FL (87-102); Mean Platelet Volume 13.5 FL (9.6-12.0); Monocytes % 3.1 % (1.7-12.7); Neutrophils % 87.6 % (38.7-73.9); Platelet Count 74 T/CUMM (130-400); Red Blood Count 4.06 MC/CUMM (3.8-5.5); Red Cell Distribution Width 11.2 % (9.3-17.3); White Blood Count 11.6 T/CUMM (4-12)
[2021-03-26 04:42] LABS: Calcium 8.9 MG/DL (8.5-10.1); Osmolality,Calculated 291.1 MOS/KG (273-304); Potassium 3.4 MMOL/L (3.5-5.1)
[2021-03-26] MEDS: POLYVINYL ALCOHOL 1.4% OPH SOLN 15 ML BOTTLE BOTH EYES SCH ×2 (09:54→20:29)
[2021-03-26] MEDS: FLUTICASONE 50 MCG NASAL SPRAY 16 GM BOTTLE BOTH NARES SCH (09:54)
[2021-03-26] MEDS: MOISTURIZING CREAM (EUCERIN) 106 GM JAR TOP SCH (09:54)
[2021-03-26] MEDS: POTASSIUM CHLORIDE RIDER 10 MEQ/100 ML PREMIX IV SCH ×2 (09:55→13:06)
[2021-03-26] MEDS: FAMOTIDINE 20 MG TABLET PO SCH (09:55)
[2021-03-26] MEDS: SKIN HEALING OINT (AQUAPHOR) 50 GM TUBE TOP SCH (09:55)
[2021-03-26] MEDS: PREGABALIN 25 MG CAPSULE PO SCH ×2 (09:55→20:26)
[2021-03-26] MEDS: BACLOFEN 10 MG TABLET PO SCH ×3 (09:55→18:07)
[2021-03-26] MEDS: DICYCLOMINE 20 MG TABLET PO SCH ×2 (09:55→18:07)
[2021-03-26] MEDS: carBAMazepine 200 MG TABLET PO SCH (09:58)
[2021-03-26] MEDS: buPROPion SR 150 MG TABLET PO SCH (09:58)
[2021-03-26] MEDS: DOCUSATE SODIUM 100 MG CAPSULE PO SCH ×2 (09:58→20:26)
[2021-03-26] MEDS: SODIUM CHLORIDE 0.45% 1,000 ML IV SCH ×2 (11:09→21:11)
[2021-03-26] MEDS: traZODone 50 MG TABLET PO SCH (20:26)
[2021-03-26] MEDS: MEMANTINE 10 MG TABLET PO SCH (20:26)
[2021-03-26] MEDS: CITALOPRAM 40 MG TABLET PO SCH (20:26)
[2021-03-26] MEDS: PIPERACILLIN/TAZOBACTAM 3,375 MG in SODIUM CHLORIDE 0.9% 100 ML IV SCH (20:43)
[2021-03-27] MEDS: KETOROLAC 15 MG/1 ML VIAL IV SCH ×4 (02:34→20:06)
[2021-03-27] MEDS: SODIUM CHLORIDE 0.45% 1,000 ML IV SCH ×2 (05:17→15:33)
[2021-03-27] MEDS: methylPREDNISolone SOD SUC 40 MG/1 ML VIAL IV SCH ×3 (05:18→20:07)
[2021-03-27] MEDS: PIPERACILLIN/TAZOBACTAM 3,375 MG in SODIUM CHLORIDE 0.9% 100 ML IV SCH ×3 (05:18→20:07)
[2021-03-27 06:14] LABS: Calcium 8.7 MG/DL (8.5-10.1); Osmolality,Calculated 284.4 MOS/KG (273-304); Potassium 4.1 MMOL/L (3.5-5.1)
[2021-03-27 06:23] LABS: Basophils % 0.2 % (0.0-0.8); Hematocrit 42.5 VOL% (35.7-47.0); Hemoglobin 14.3 GM/DL (12.0-16.0); Immature Granulocytes % 1.1 %; Immature Granulocytes Absolute 0.11 #; Lymphocytes # 0.8 10*3/uL (1.4-4.0); Lymphocytes % 8.4 % (21.3-54.2); Mean Corpuscular HGB Conc 33.6 GM/DL (32-36); Mean Corpuscular Volume 101.9 FL (87-102); Monocytes % 4.9 % (1.7-12.7); Neutrophils % 85.4 % (38.7-73.9); Platelet Count 52 T/CUMM (130-400); Red Blood Count 4.17 MC/CUMM (3.8-5.5); Red Cell Distribution Width 11.5 % (9.3-17.3); White Blood Count 9.9 T/CUMM (4-12)
[2021-03-27 06:28] LABS: Platelet Estimate Decreased
[2021-03-27] MEDS: PREGABALIN 25 MG CAPSULE PO SCH ×2 (08:56→20:05)
[2021-03-27] MEDS: DOCUSATE SODIUM 100 MG CAPSULE PO SCH ×2 (08:56→20:05)
[2021-03-27] MEDS: carBAMazepine 200 MG TABLET PO SCH (08:56)
[2021-03-27] MEDS: DICYCLOMINE 20 MG TABLET PO SCH ×2 (08:56→17:35)
[2021-03-27] MEDS: BACLOFEN 10 MG TABLET PO SCH ×3 (08:57→17:35)
[2021-03-27] MEDS: FLUTICASONE 50 MCG NASAL SPRAY 16 GM BOTTLE BOTH NARES SCH (08:57)
[2021-03-27] MEDS: buPROPion SR 150 MG TABLET PO SCH (08:57)
[2021-03-27] MEDS: FAMOTIDINE 20 MG TABLET PO SCH (08:57)
[2021-03-27] MEDS: MOISTURIZING CREAM (EUCERIN) 106 GM JAR TOP SCH (08:57)
[2021-03-27] MEDS: SKIN HEALING OINT (AQUAPHOR) 50 GM TUBE TOP SCH (08:58)
[2021-03-27] MEDS: POLYVINYL ALCOHOL 1.4% OPH SOLN 15 ML BOTTLE BOTH EYES SCH ×2 (08:58→20:07)
[2021-03-27] MEDS: traZODone 50 MG TABLET PO SCH (20:06)
[2021-03-27] MEDS: MEMANTINE 10 MG TABLET PO SCH (20:06)
[2021-03-27] MEDS: CITALOPRAM 40 MG TABLET PO SCH (20:06)
[2021-03-28] MEDS: KETOROLAC 15 MG/1 ML VIAL IV SCH ×3 (01:49→14:59)
[2021-03-28] MEDS: SODIUM CHLORIDE 0.45% 1,000 ML IV SCH ×2 (02:15→11:42)
[2021-03-28 05:10] LABS: Basophils % 0.2 % (0.0-0.8); Eosinophils % 0.1 % (0.00-10.9); Hematocrit 36.6 VOL% (35.7-47.0); Hemoglobin 12.2 GM/DL (12.0-16.0); Immature Granulocytes % 1.9 %; Lymphocytes # 1.3 10*3/uL (1.4-4.0); Lymphocytes % 12.1 % (21.3-54.2); Mean Corpuscular HGB Conc 33.3 GM/DL (32-36); Mean Corpuscular Volume 100.5 FL (87-102); Monocytes % 7.2 % (1.7-12.7); Neutrophils % 78.5 % (38.7-73.9); Platelet Count 47 T/CUMM (130-400); Red Blood Count 3.64 MC/CUMM (3.8-5.5); Red Cell Distribution Width 11.3 % (9.3-17.3); White Blood Count 10.7 T/CUMM (4-12)
[2021-03-28 05:30] LABS: Platelet Estimate Decreased
[2021-03-28 05:40] LABS: Calcium 8.6 MG/DL (8.5-10.1); Osmolality,Calculated 285.4 MOS/KG (273-304); Potassium 4.3 MMOL/L (3.5-5.1)
[2021-03-28] MEDS: methylPREDNISolone SOD SUC 40 MG/1 ML VIAL IV SCH ×2 (05:45→14:27)
[2021-03-28] MEDS: PIPERACILLIN/TAZOBACTAM 3,375 MG in SODIUM CHLORIDE 0.9% 100 ML IV SCH ×2 (05:45→14:23)
[2021-03-28] MEDS: SKIN HEALING OINT (AQUAPHOR) 50 GM TUBE TOP SCH (09:27)
[2021-03-28] MEDS: MOISTURIZING CREAM (EUCERIN) 106 GM JAR TOP SCH (09:28)
[2021-03-28] MEDS: POLYVINYL ALCOHOL 1.4% OPH SOLN 15 ML BOTTLE BOTH EYES SCH (09:28)
[2021-03-28] MEDS: carBAMazepine 200 MG TABLET PO SCH (09:28)
[2021-03-28] MEDS: DOCUSATE SODIUM 100 MG CAPSULE PO SCH (09:28)
[2021-03-28] MEDS: buPROPion SR 150 MG TABLET PO SCH (09:28)
[2021-03-28] MEDS: BACLOFEN 10 MG TABLET PO SCH ×3 (09:29→17:18)
[2021-03-28] MEDS: FAMOTIDINE 20 MG TABLET PO SCH (09:29)
[2021-03-28] MEDS: DICYCLOMINE 20 MG TABLET PO SCH ×2 (09:29→17:18)
[2021-03-28] MEDS: PREGABALIN 25 MG CAPSULE PO SCH (09:30)
[2021-03-28] MEDS: FIBER STAT PO SCH (09:32)
[2021-03-28] MEDS: FLUTICASONE 50 MCG NASAL SPRAY 16 GM BOTTLE BOTH NARES SCH (09:33)
[2021-03-28] MEDS ORDERED: ROPIVACAINE 0.5% 30 ML VIAL MISC INJ ONE (11:00)
[2021-03-28] MEDS ORDERED: TRIAMCINOLONE ACETONIDE 40 MG/1 ML VIAL MISC INJ ONE (11:00)
[2021-03-29] MEDS: DOCUSATE SODIUM 100 MG CAPSULE PO SCH ×3 (00:03→22:41)
[2021-03-29] MEDS: MEMANTINE 10 MG TABLET PO SCH ×2 (00:03→22:41)
[2021-03-29] MEDS: PREGABALIN 25 MG CAPSULE PO SCH ×2 (00:03→09:56)
[2021-03-29] MEDS: POLYVINYL ALCOHOL 1.4% OPH SOLN 15 ML BOTTLE BOTH EYES SCH ×3 (00:04→22:42)
[2021-03-29] MEDS: traZODone 50 MG TABLET PO SCH (00:06)
[2021-03-29] MEDS: CITALOPRAM 40 MG TABLET PO SCH (00:06)
[2021-03-29] MEDS: SODIUM CHLORIDE 0.45% 1,000 ML IV SCH ×3 (06:34→16:44)
[2021-03-29] MEDS: methylPREDNISolone SOD SUC 40 MG/1 ML VIAL IV SCH ×3 (06:34→12:43)
[2021-03-29] MEDS: KETOROLAC 15 MG/1 ML VIAL IV SCH ×4 (06:34→22:41)
[2021-03-29] MEDS: PIPERACILLIN/TAZOBACTAM 3,375 MG in SODIUM CHLORIDE 0.9% 100 ML IV SCH ×3 (06:35→22:41)
[2021-03-29] MEDS: carBAMazepine 200 MG TABLET PO SCH (09:56)
[2021-03-29] MEDS: FAMOTIDINE 20 MG TABLET PO SCH (09:56)
[2021-03-29] MEDS: buPROPion SR 150 MG TABLET PO SCH (09:56)
[2021-03-29] MEDS: BACLOFEN 10 MG TABLET PO SCH ×3 (09:57→16:43)
[2021-03-29] MEDS: MOISTURIZING CREAM (EUCERIN) 106 GM JAR TOP SCH (09:57)
[2021-03-29] MEDS: DICYCLOMINE 20 MG TABLET PO SCH ×2 (09:57→16:43)
[2021-03-29] MEDS: SKIN HEALING OINT (AQUAPHOR) 50 GM TUBE TOP SCH (09:58)
[2021-03-29] MEDS: FLUTICASONE 50 MCG NASAL SPRAY 16 GM BOTTLE BOTH NARES SCH (09:58)
[2021-03-29 10:53] LABS: Basophils % 0.2 % (0.0-0.8); Eosinophils # 0.3 10*3/uL (0.0-0.87); Eosinophils % 2.3 % (0.00-10.9); Hemoglobin 12.4 GM/DL (12.0-16.0); Immature Granulocytes % 2.5 %; Immature Granulocytes Absolute 0.31 #; Lymphocytes # 3.3 10*3/uL (1.4-4.0); Lymphocytes % 26.4 % (21.3-54.2); Mean Corpuscular HGB Conc 34.4 GM/DL (32-36); Mean Corpuscular Volume 99.4 FL (87-102); Mean Platelet Volume 14.2 FL (9.6-12.0); Monocytes % 8.2 % (1.7-12.7); Neutrophils % 60.4 % (38.7-73.9); Platelet Count 53 T/CUMM (130-400); Red Blood Count 3.62 MC/CUMM (3.8-5.5); Red Cell Distribution Width 11.5 % (9.3-17.3); White Blood Count 12.6 T/CUMM (4-12)
[2021-03-29 11:18] LABS: Hypochromasia Slight; Microcytosis Slight; Platelet Estimate Decreased
[2021-03-29 11:35] LABS: Bilirubin,Urine Negative (Negative); Blood, Urine Negative (Negative); Glucose,Urine (UA) Negative (Negative); Ketones,Urine 5 mg/dL (Negative); Mucus,Urine Many /LPF (Occasional); Nitrite,Urine Negative (Negative); Protein,Urine 30 MG/DL; RBC,Urine 25 /HPF (0-4); Squamous Epithelial Cell,Urine Occasional /HPF (0-10); Urine Appearance Slightly Hazy (Clear); Urine Color Amber (Yellow); Urine Specific Gravity 1.028 (1.001-1.035)
[2021-03-29] MEDS ORDERED: BACLOFEN 10 MG TABLET PO PRN (17:20)
[2021-03-29] MEDS ORDERED: traZODone 50 MG TABLET PO PRN (17:21)
[2021-03-29] MEDS ORDERED: PREGABALIN 25 MG CAPSULE PO PRN (17:21)
[2021-03-30] MEDS: KETOROLAC 15 MG/1 ML VIAL IV SCH ×2 (01:41→08:40)
[2021-03-30] MEDS: methylPREDNISolone SOD SUC 40 MG/1 ML VIAL IV SCH ×2 (05:31→16:09)
[2021-03-30] MEDS: SODIUM CHLORIDE 0.45% 1,000 ML IV SCH ×2 (05:32→14:13)
[2021-03-30] MEDS: PIPERACILLIN/TAZOBACTAM 3,375 MG in SODIUM CHLORIDE 0.9% 100 ML IV SCH ×2 (05:35→14:13)
[2021-03-30 05:42] LABS: Basophils % 0.2 % (0.0-0.8); Eosinophils # 0.2 10*3/uL (0.0-0.87); Hematocrit 36.6 VOL% (35.7-47.0); Hemoglobin 12.7 GM/DL (12.0-16.0); Immature Granulocytes % 4.1 %; Immature Granulocytes Absolute 0.41 #; Lymphocytes # 2.5 10*3/uL (1.4-4.0); Lymphocytes % 24.7 % (21.3-54.2); Mean Corpuscular HGB Conc 34.7 GM/DL (32-36); Mean Corpuscular Volume 97.1 FL (87-102); Monocytes % 6.9 % (1.7-12.7); Neutrophils % 62.1 % (38.7-73.9); Platelet Count 70 T/CUMM (130-400); Red Blood Count 3.77 MC/CUMM (3.8-5.5); Red Cell Distribution Width 11.4 % (9.3-17.3)
[2021-03-30 05:58] LABS: Calcium 8.5 MG/DL (8.5-10.1); Potassium 4.1 MMOL/L (3.5-5.1)
[2021-03-30 06:02] LABS: Platelet Estimate Decreased
[2021-03-30] MEDS: carBAMazepine 200 MG TABLET PO SCH (08:39)
[2021-03-30] MEDS: buPROPion SR 150 MG TABLET PO SCH (08:39)
[2021-03-30] MEDS: DICYCLOMINE 20 MG TABLET PO SCH (08:39)
[2021-03-30] MEDS: MOISTURIZING CREAM (EUCERIN) 106 GM JAR TOP SCH (08:40)
[2021-03-30] MEDS: DOCUSATE SODIUM 100 MG CAPSULE PO SCH (08:40)
[2021-03-30] MEDS: POLYVINYL ALCOHOL 1.4% OPH SOLN 15 ML BOTTLE BOTH EYES SCH (08:40)
[2021-03-30] MEDS: FAMOTIDINE 20 MG TABLET PO SCH (08:40)
[2021-03-30] MEDS: FLUTICASONE 50 MCG NASAL SPRAY 16 GM BOTTLE BOTH NARES SCH (08:40)
[2021-03-30] MEDS: SKIN HEALING OINT (AQUAPHOR) 50 GM TUBE TOP SCH (08:40)
[2021-03-30] MEDS: FIBER STAT PO SCH (09:56)
[2021-03-30 16:07] VITALS: BP 113/59
== END 2021-03-30 17:17 | DRG 463 ==
LOC: EDBD → EDUNIT# → N.ED 17:59 → N.EDINP 20:42 → N.TELEN 21:54
PROVIDERS: ADMIT Family Medicine; ATTEND Internal Medicine